=== PATIENT | female | born 1935 | race Caucasian/White ===

== ENCOUNTER 2016-10-02 20:59 | Emergency (ER) | payer OTHER ==
[2016-10-02 21:42] VITALS: BP 134/74; PULSE 70; RESP 16; TEMP 97; O2SAT 95
[2016-10-02 21:50] LABS: COLOR YELLOW; LEUKOCYTE ESTERASE,URINE 1+ (NEGATIVE); NITRITE,URINE NEGATIVE (NEGATIVE); PH,URINE 6.5 (5.0-7.5)
[2016-10-02] MEDS ORDERED: NITROFURANTOIN 100MG PREPACK#2 BTL TAKEHOME ONE (21:58)
[2016-10-02 22:00] LABS: WBC,URINE 15-25 /hpf (0-3)
[2016-10-02] MEDS ORDERED: PHENAZOPYRIDINE HCL 200 MG TAB PO ONE (22:00)
[2016-10-02 22:01] LABS: BACTERIA 2+ /hpf (NONE SEEN); RBC,URINE NONE SEEN /hpf (0-3)
--- NOTE | 2016-10-02 22:03 | EDPHY ---
H & P Stated Complaint: urinary frequency that started today Time Seen by Provider: 10/02/16 21:44 HPI/ROS: Chief Complaint: Urinary frequency, confusion HPI: 81-year-old woman with a history of dementia presenting with 2 days of increasing urinary frequency and urgency. Daughter has noted some increasing confusion today as well. She is prone to frequent UTIs and has similar symptoms. Denies any pain. No nausea or vomiting. No fevers or chills. ROS: 10 point Review of Systems is negative except as noted in the HPI. PMH: Hyperlipidemia, dementia Social History: No smoking, no alcohol, no recreational drug use, lives alone Family History: non-contributory Physical Exam: Gen: Awake, Alert, No Distress, mildly confused HEENT: Nose: no rhinorrhea Eyes: PERRLA, EOMI Mouth: Moist mucosa Neck: Supple, no JVD Chest: nontender, lungs clear to auscultation Heart: S1, S2 normal, no murmur Abd: Soft, non-tender, no guarding Back: no CVA tenderness, no midline tenderness Ext: no edema, non-tender Skin: no rash Neuro: CN II-XII intact, Sensation grossly intact, Strength 5/5 in bilateral upper and lower extremities - Medical/Surgical History Hx Asthma: No Hx Chronic Respiratory Disease: No Hx Diabetes: No Hx Cardiac Disease: No Hx Renal Disease: No Hx Cirrhosis: No Hx Alcoholism: No Hx HIV/AIDS: No Hx Splenectomy or Spleen Trauma: No Other PMH: dementia, HTN - Social History Smoking Status: Never smoked Constitutional: Initial Vital Signs Temperature (C) 36.1 C 10/02/16 21:39 Heart Rate 70 10/02/16 21:39 Respiratory Rate 16 10/02/16 21:39 Blood Pressure 134/74 H 10/02/16 21:39 O2 Sat (%) 95 10/02/16 21:39 O2 Delivery Mode Room Air Allergies/Adverse Reactions: No Known Allergies Allergy (Verified 10/02/16 21:37) Home Medications: Medication Instructions Recorded Questran 12/23/14 Simvastatin 12/23/14 Lopdipine 10/02/16 MIRTAZAPINE [Remeron 7.5 mg] 10/02/16 Nitrofurantoin Monohyd/M-Cryst 100 mg PO BID #10 capsule 10/02/16 [Macrobid 100 mg Capsule] Phenazopyridine HCl [Pyridium] 200 mg PO TID #6 tab 10/02/16 Medical Decision Making ED Course/Re-evaluation: 81-year-old with urinary tract infection. Will start her on some Pyridium as well as Macrobid. She will be staying with her daughter until her her mental status clears. Follow up with primary care physician in next 2-3 days, return for worsening. - Data Points Laboratory Results: 10/02/16 21:45 Urine Color YELLOW Urine Appearance CLEAR Urine pH 6.5 (5.0-7.5) Ur Specific [place] <= 1.005 (1.002-1.030) Urine Protein NEGATIVE (NEGATIVE) Urine Ketones NEGATIVE (NEGATIVE) Urine Blood TRACE H (NEGATIVE) Urine Nitrate NEGATIVE (NEGATIVE) Urine Bilirubin NEGATIVE (NEGATIVE) Urine Urobilinogen 0.2 EU EU (0.2-1.0) Ur Leukocyte Esterase 1+ H (NEGATIVE) Urine RBC Pending Urine WBC Pending Ur Epithelial Cells Pending Urine Glucose NEGATIVE (NEGATIVE) Departure - Departure Disposition: Home, Routine, Self-Care Clinical Impression: Urinary tract infection Condition: Good Instructions: Urinary Tract Infection in Women (ED) Additional Instructions: Follow up with primary care physician in 2-3 days for re-evaluation. Return to the emergency depart for increasing confusion, fevers, chills, fainting, nausea, vomiting, or any other concerns. Referrals: Nikki Stoddard MD [Medical Doctor] - As per Instructions Prescriptions: Nitrofurantoin Monohyd/M-Cryst [Macrobid 100 mg Capsule] 100 mg PO BID #10 capsule Phenazopyridine HCl [Pyridium] 200 mg PO TID #6 tab
[2016-10-02] MEDS ORDERED: ONDANSETRON 4MG PREPACK#2 BTL TAKEHOME ONE (22:07)
[2016-10-02] MEDS ORDERED: ONDANSETRON DISINTEGRATING 4 MG TAB ONE (22:08)
[2016-10-02] MEDS ORDERED: ONDANSETRON DISINTEGRATING 4 MG TAB PO ONE (22:22)
== END 2016-10-02 22:31 | disposition home or self-care (01) ==
LOC: CED 20:59
DX: N39.0 Urinary tract infection, site not specified (principal); I10 Essential (primary) hypertension
CPT/HCPCS: 81003-PO; 81015-PO

== ENCOUNTER 2017-09-23 22:21 | Observation (INO) | payer OTHER ==
[2017-09-23] MEDS ORDERED: NS 500 ML IV ONE (22:27)
[2017-09-23] MEDS ORDERED: ONDANSETRON 4 MG/2 ML VIAL IVP ONE (22:32)
--- NOTE | 2017-09-23 22:32 | EDPHY ---
H & P Smoking Status: Never smoked Time Seen by Provider: 09/23/17 22:26 HPI/ROS: CHIEF COMPLAINT: Shortness of breath HISTORY OF PRESENT ILLNESS: Patient brought in by daughter for shortness of breath. Patient lives alone, has history of dementia, and called her daughter about 30 min prior to arrival sane"I can not breathe". Last time her daughter talked her was yesterday and she had no complaints. She heard nothing today about other illnesses. Patient repetitively says "I can't breathe", also states "I am cold". Patient shaking on arrival with increased respiratory rate. On further investigation patient denies pain anywhere. She denies pain with breathing. She has had no cough. No report of nausea, vomiting, diarrhea. Does have history of UTIs with the last 1 several months ago. But currently denying dysuria. On further discussion with daughter patient with fairly significant dementia which has been getting much worse. Likely will need assisted living soon. When asked if patient gets anxiety attacks from her dementia daughter denies but states that she sometimes will complain of dizziness. No other recent illnesses. No recent travel. No recent surgeries. REVIEW OF SYSTEMS: Constitutional: No fever, no chills. Eyes: No discharge. ENT: No sore throat. Cardiovascular: No chest pain, no palpitations. Respiratory: Per HPI Gastrointestinal: No abdominal pain, vomiting in the ED. Genitourinary: No dysuria. Musculoskeletal: No back pain. Skin: No rashes. Neurological: No headache. General Appearance: Alert, moderate distress, shaking. Eyes: Pupils equal and round no pallor or injection. ENT, Mouth: Mucous membranes moist. Respiratory: There are no retractions, lungs are clear to auscultation. Cardiovascular: Regular rate and rhythm. Gastrointestinal: Abdomen is soft and nontender, no masses, bowel sounds normal. Neurological: Alert, dementia, no focal neurologic deficits. Skin: Warm and dry, no rashes. Musculoskeletal: Neck is supple nontender. Extremities are symmetrical, full range of motion, no edema. Psychiatric: Patient is cooperative, following commands, there is no agitation. Medical/surgical history: Dementia, hypothyroid, high cholesterol Social history: Lives alone, nonsmoker. (Maia Wilkerson) Constitutional: Initial Vital Signs Temperature (C) 36.7 C 09/23/17 22:28 Heart Rate 99 09/23/17 22:28 Respiratory Rate 20 09/23/17 22:28 Blood Pressure 153/96 H 09/23/17 22:28 O2 Sat (%) 90 L 09/23/17 22:28 O2 Delivery Mode Room Air O2 (L/minute) 2 Allergies/Adverse Reactions: No Known Allergies Allergy (Verified 10/02/16 21:37) Home Medications: Medication Instructions Recorded Questran 12/23/14 Simvastatin 12/23/14 Lopdipine 10/02/16 MIRTAZAPINE [Remeron 7.5 mg] 10/02/16 Thyroid [[place] Thyroid 60 MG (*)] 0 mg PO DAILY10 09/23/17 Medical Decision Making - Diagnostics Imaging Results: Imaging Impressions Chest X-Ray 09/23/17 22:27 Impression: 1. Atherosclerotic tortuous aorta. 2. No evidence of definite pneumonia or pulmonary edema. 3. Consider chest 2 views when the patient's medical condition permits. ED Course/Re-evaluation: 10:37 p.m. patient vomiting in the emergency department. Zofran ordered. 10:50 p.m. reviewed patient presentation, patient history, vital signs and physical findings with Dr. Pham. Likely admission. (Maia Wilkerson) 2300; patient is signed over to me at 11:00 p.m. Shift change. Patient was pending a urinalysis. The urinalysis has resulted and shows nitrite positive UTI. I have ordered a urine culture. The patient has been given 1 g Rocephin. I did go and see and evaluate her she is pleasant, and has no complaints. Her daughter is at bedside who states her neurological exam is at her baseline. Patient denies any coughing or significant abdominal pain or back pain. Here in emergency room she appears well nontoxic no acute distress. She is afebrile. Vital signs are stable. She is not hypotensive. She did have 1 episode of vomiting however currently denies any nausea chest pain or shortness of breath at this time. EKG interpretation by me on record in [employer] system. Impression time of EKG 2044, this is sinus tach 103 Q-waves noted inferior leads to 3 AVF, no ST elevation, Q-waves noted V1 V2 V3. No significant ST depression. LVH present. 2301: Long discussion with the patient as well as daughter at bedside about keeping her overnight for observation and UTI. 2305: Urine cultures been sent. 1 g IV Rocephin. It is noted she does have a positive D-dimer however I think pulmonary embolism is unlikely given that she does not have any chest pain does not have any significant shortness of breath. D-dimer is most likely positive in 82-year-old with nitrite positive UTI. Will admit to the hospital for nitrite UTI, dehydration. Chest x-ray reviewed. No evidence of infiltrate. 2324: Had a long discussion with the patient as well as the daughter at bedside discussed the results of the D-dimer. Additionally given that the D- dimer is positive and she had a room air saturation of 87% upon arrival and is requiring supplemental oxygen 2 L nasal cannula discussed further imaging for PE. I also discussed this with the hospitalist service they requested that we proceed with CT angiogram if the family is okay with this. Spoke with the daughter as well as the patient they are fine with proceeding with CT angiogram. Rule out PE. The D-dimer is positive most likely due to UTI. However patient's main complaint when she caught her daughter with shortness of breath. CT angiogram of the chest shows no evidence of pulmonary embolism. Emphysema present. Calcified aorta. Called to me by Dr. Frederick. Updated patient and family about CT results. Will continue treatment for UTI. Excepted overt [facility] by Dr. East. ([facility]) - Data Points Laboratory Results: Laboratory Results 09/23/17 22:35 09/23/17 22:35 09/23/17 09/23/17 09/23/17 22:50 22:35 22:35 WBC RBC Hgb Hct MCV MCH MCHC RDW Plt Count MPV Neut % (Auto) Lymph % (Auto) [place] % (Auto) Eos % (Auto) Baso % (Auto) Nucleat RBC Rel Count Absolute Neuts (auto) Absolute Lymphs (auto) Absolute Monos (auto) Absolute Eos (auto) Absolute Basos (auto) Absolute Nucleated RBC Immature Gran % Immature Gran # D-Dimer Sodium 139 mEq/L mEq/L (135-145) Potassium 3.2 mEq/L L mEq/L (3.3-5.0) Chloride 102 mEq/L mEq/L (97-110) Carbon Dioxide 22 mEq/l mEq/l (22-31) Anion Gap 15 mEq/L mEq/L (8-16) BUN 8 mg/dL mg/dL (7-23) Creatinine 0.6 mg/dL mg/dL (0.6-1.0) Estimated GFR > 60 Glucose 127 mg/dL H mg/dL (70-100) Calcium 9.9 mg/dL mg/dL (8.5-10.4) Troponin I Cancelled < 0.012 ng/mL ng/mL (0.000-0.034) TSH 3.660 uIU/mL uIU/mL (0.465-4.680) Urine Color YELLOW Urine Appearance HAZY Urine pH 6.0 (5.0-7.5) Ur Specific [place] 1.015 (1.002-1.030) Urine Protein NEGATIVE (NEGATIVE) Urine Ketones TRACE H (NEGATIVE) Urine Blood 2+ H (NEGATIVE) Urine Nitrate POSITIVE H (NEGATIVE) Urine Bilirubin NEGATIVE (NEGATIVE) Urine Urobilinogen 0.2 EU EU (0.2-1.0) Ur Leukocyte Esterase 3+ H (NEGATIVE) Urine RBC 25-50 /hpf H /hpf (0-3) Urine WBC 50-182 /hpf H /hpf (0-3) Ur Epithelial Cells NONE SEEN /lpf /lpf (NONE-1+) Urine Bacteria 3+ /hpf H /hpf (NONE SEEN) Urine Mucus 2+ /lpf H /lpf (NONE-1+) Urine Glucose NEGATIVE (NEGATIVE) 09/23/17 09/23/17 22:35 22:35 WBC 7.92 10^3/uL 10^3/uL (3.80-9.50) RBC 4.56 10^6/uL 10^6/uL (4.18-5.33) Hgb 13.8 g/dL g/dL (12.6-16.3) Hct 40.7 % % (38.0-47.0) MCV 89.3 fL fL (81.5-99.8) MCH 30.3 pg pg (27.9-34.1) MCHC 33.9 g/dL g/dL (32.4-36.7) RDW 12.9 % % (11.5-15.2) Plt Count 217 10^3/uL 10^3/uL (150-400) MPV 8.6 fL L fL (8.7-11.7) Neut % (Auto) 90.5 % H % (39.3-74.2) Lymph % (Auto) 8.2 % L % (15.0-45.0) [place] % (Auto) 0.4 % L % (4.5-13.0) Eos % (Auto) 0.3 % L % (0.6-7.6) Baso % (Auto) 0.3 % % (0.3-1.7) Nucleat RBC Rel Count 0.0 % % (0.0-0.2) Absolute Neuts (auto) 7.18 10^3/uL H 10^3/uL (1.70-6.50) Absolute Lymphs (auto) 0.65 10^3/uL L 10^3/uL (1.00-3.00) Absolute Monos (auto) 0.03 10^3/uL L 10^3/uL (0.30-0.80) Absolute Eos (auto) 0.02 10^3/uL L 10^3/uL (0.03-0.40) Absolute Basos (auto) 0.02 10^3/uL 10^3/uL (0.02-0.10) Absolute Nucleated RBC 0.00 10^3/uL 10^3/uL (0-0.01) Immature Gran % 0.3 % % (0.0-1.1) Immature Gran # 0.02 10^3/uL 10^3/uL (0.00-0.10) D-Dimer 2.10 ug/mLFEU H ug/mLFEU (0.00-0.50) Sodium Potassium Chloride Carbon Dioxide Anion Gap BUN Creatinine Estimated GFR Glucose Calcium Troponin I TSH Urine Color Urine Appearance Urine pH Ur Specific [place] Urine Protein Urine Ketones Urine Blood Urine Nitrate Urine Bilirubin Urine Urobilinogen Ur Leukocyte Esterase Urine RBC Urine WBC Ur Epithelial Cells Urine Bacteria Urine Mucus Urine Glucose Medications Given: Discontinued Medications Sodium Chloride (Ns) 500 mls @ 1,000 mls/hr IV EDNOW ONE PRN Reason: Protocol Stop: 09/23/17 22:56 Last Admin: 09/23/17 22:55 Dose: 500 mls Ceftriaxone Sodium/Dextrose (Rocephin 1 Gm (Premix)) 50 mls @ 100 mls/hr IV EDNOW ONE PRN Reason: Protocol Stop: 09/23/17 23:28 Last Admin: 09/23/17 23:06 Dose: 50 mls Ondansetron HCl (Zofran) 4 mg IVP EDNOW ONE Stop: 09/23/17 22:33 Last Admin: 09/23/17 22:36 Dose: 4 mg Departure - Departure Disposition: [facility] Clinical Impression: Dehydration UTI (urinary tract infection) Qualifiers: Urinary tract infection type: acute cystitis Hematuria presence: with hematuria Qualified Code(s): N30.01 - Acute cystitis with hematuria Dementia Qualifiers: Dementia type: unspecified type Dementia behavioral disturbance: without behavioral disturbance Qualified Code(s): F03.90 - Unspecified dementia without behavioral disturbance Condition: Fair
[2017-09-23] MEDS ORDERED: ONDANSETRON 4 MG/2 ML VIAL ONE (22:35)
--- NOTE | 2017-09-23 22:46 | CPEKG ---
Heart Rate: 103 RR Interval: 583 P-R Interval: 156 QRSD Interval: 90 QT Interval: 324 QTC Interval: 424 P [place]: 38 QRS [place]: -51 T Wave [place]: 155 EKG Severity - ABNORMAL ECG - EKG Impression: SINUS TACHYCARDIA EKG Impression: PROBABLE LVH WITH SECONDARY REPOL ABNRM EKG Impression: PROBABLE INFERIOR INFARCT, AGE INDETERMINATE EKG Impression: Poor R wave progression Electronically Signed By: Dinesh Barboza 25-Sep-2017 08:50:04
[2017-09-23 22:49] LABS: PLATELET COUNT 217 10^3/uL (150-400)
[2017-09-23] MEDS ORDERED: IOPAMIDOL (ISOVUE 370) 100 ML BTL IV ONE (23:19)
[2017-09-24] MEDS ORDERED: ACETAMINOPHEN 325 MG TAB PO PRN (01:50)
[2017-09-24] MEDS ORDERED: ONDANSETRON 4 MG/2 ML VIAL IVP PRN (01:50)
[2017-09-24] MEDS ORDERED: NS 1,000 ML IV SCH (02:00)
[2017-09-24] MEDS ORDERED: PROTOCOL POTASSIUM 1 DOSE MISC PRN (03:10)
[2017-09-24] MEDS ORDERED: MIRTAZAPINE 15 MG TAB PO ONE (03:24)
--- NOTE | 2017-09-24 05:46 | GHP ---
[f rep st] HISTORY AND PHYSICAL DATE OF ADMISSION: 09/23/2017 SOURCE: Patient with advanced dementia. She is not able to supplement any history as she has quite severe short-term memory deficits. Her daughter had left for the evening shortly after patient arriv ed from [facility]. EMR was reviewed, and case was discussed with ED provider. CHIEF COMPLAINT: Tremor and shortness of breath. HISTORY OF PRESENT ILLNESS: This is a pleasant elderly lady with history of Alzheimer dementia, who presents to the emergency department at [facility] with complaints of shortness of breath to her daughter. Patient resides in an independent living apartment. She called her daughter approximately 30 minutes before arriving to the ER, complaining that she could not breathe. Patient without any complaints o f anything on day previously when she talked to her daughter on the phone. Patient also complained t hat she felt cold at the time of her symptoms. Patient arrived to [facility] with some shaking and increase d respiratory rate. She was noted to be hypoxic down into the 70s. Patient without any cough. No f bridger or chills are noted. No known nausea, vomiting, or diarrhea episodes. Patient with a history of recurrent UTIs, but she denies any symptoms and states she feels fine. REVIEW OF SYSTEMS: Patient denies any symptoms at this time. No family available for further review and so limited. ALLERGIES: No known drug allergies. HOME MEDICATIONS: As per EMR, [place] Thyroid 60 mg p.o. daily, simvastatin, Questran, Remeron 7.5, l odipine (dose unknown). PAST MEDICAL HISTORY: Significant for dementia. PAST SURGICAL HISTORY: Patient denies but unable to verify. FAMILY HISTORY: Unable to obtain secondary to patient's dementia. SOCIAL HISTORY: Patient resides in independent living apartment. No known drug, tobacco, or alcohol use. CODE STATUS: Unable to verify as daughter has left for the evening. PHYSICAL EXAMINATION: VITALS: Upon arrival to the emergency department, blood pressure 153/96, hear t rate is 99, respiratory rate 20, O2 sat 90% on room air, temperature is 36.7. Patient's O2 sats do improve to mid 90% with 2 L of supplemental oxygen, but she does desat to mid 70s per report from e ER provider when she is placed on room air. HEAD: Normocephalic, atraumatic. EYES: Extraocular muscles are grossly intact. Pupils equal, round, react to light bilaterally and symmetric. No scler al icterus or conjunctival injection. ENT: Mucous membranes appear slightly tacky. No nasal discha rge. No oropharyngeal erythema. NECK: Supple. Trachea midline. CV: Regular rate and rhythm. Oscar guzman does have a 3/6 systolic murmur left sternal border. RESPIRATORY: Unlabored breathing. Lungs are quite diminished bibasilarly. No wheezes, rales, or rhonchi appreciated. ABDOMEN: Positive yoan wel sounds. Soft, nontender to palpation. No rebound, guarding, or masses appreciated. : No sup rapubic tenderness to palpation. No Sapp catheter in place. EXTREMITIES: Patient's strength 4/5 t o 5/5 in upper and lower extremities. Moves all extremities. Sits up independently. NEURO: Grossl y nonfocal. No facial drooping. Moves all extremities as noted above. PSYCH: Patient's short-term memory is diminished. She is not agitated, but she is a little restless, but she is resting comfort ably in the bed, trying to manipulate the remote control for the TV and states she cannot hear despit e it being on max volume. Patient is aware she is in the hospital and does not know location or why she is in the hospital. LABORATORY STUDIES: 1. WBC 7.92, H and H 13.8 and 40.7, MCV 89.3, platelet count is 217, no bands. 2. Sodium is 139, potassium 3.2, chloride 102, CO2 is 22, anion gap 15, BUN is 8, creatinine 0.6, GF R greater than 60, glucose 127, calcium 7.9. Troponin is negative. TSH is 3.660. 3. D-dimer is 2.10. 4. UA: Specific gravity of 1.015, pH 6.0, negative protein, ketones trace, blood 2+, nitrites posit radha, bilirubin negative, leukocyte esterase 3+, RBCs 25-50, WBCs 50-182, bacteria 3+, mucus 2+, gluco se negative. 5. EKG, reviewed myself, showing sinus tachycardia at 100s, probable LVH with early repolar changes, inferior infarct, Q waves in leads III, aVF. Anterior Q waves possibly secondary to LVH. QTc 424. 6. Chest x-ray image report reviewed, showing atherosclerotic tortuous aorta, negative for pneumonia or pulmonary edema. 7. CTA of the chest with contrast: Negative for PE. Severe emphysema is noted. Atherosclerotic ao rta without aneurysm. Coronary atherosclerosis present. Linear scarring right lower lobe without de finite pneumonia and severe vertebral plana, old fracture T12 vertebral body probably osteoporotic. ASSESSMENT AND PLAN: A pleasant 82-year-old female with history of advanced dementia, who presents t o the emergency department with complaint of shortness of breath. 1. Hypoxia and acute hypoxic respiratory failure. Patient without any previous requirement for home oxygen. CT scan was negative for any evidence of pulmonary embolism. It was, however, notable for pretty significant emphysema. It is unclear at this time if patient will tolerate wearing oxygen at home or remember to have it placed. Here on the medical floor, patient does remove it intermittently and has slightly increased agitation. 2. Urinary tract infection. Patient with history of recurrent. She is not currently symptomatic, b ut daughter does report history of some potential rigors. She has received 1 dose of Rocephin which we will plan to continue pending urine studies. 3. Dementia, severe. Supportive care. 4. Hypokalemia. Replacement p.r.n. 5. Hyperglycemia. This is a nonfasting lab. We will plan to monitor without any additional interve ntions at this time. We will allow for hyperglycemia in this pleasant elderly lady. 6. Hyperlipidemia. Resume her statin when medication reconciliation available. 7. Hypothyroidism. Resume her [place] Thyroid when medication reconciliation available, also. 8. The patient is on lodipine for unclear diagnosis. Will further discuss with the patient's daught er when she returns. 9. Fluid, electrolytes, nutrition. Patient will continue to receive intravenous fluids, and electro lytes will be monitored with. Diet regular. No known issues with dysphagia. 10. Code status is unable to ascertain. She will be left as full at this time until we can further discuss with the daughter who has gone home for the evening. 11. Disposition. Patient has been admitted to observation status on the medical floor at this time pending titration off oxygen, stability of patient's respiratory status, electrolyte replacement, and urinary tract infection evaluation and treatment. /[id number]/MODL
[2017-09-24] MEDS ORDERED: ENOXAPARIN 30 MG/0.3 ML SYR SC SCH (09:00)
[2017-09-24] MEDS ORDERED: POTASSIUM CL 10 MEQ TAB PO ONE (10:14)
--- NOTE | 2017-09-24 11:16 | ASMTCASEMG ---
Living Arrangements What is your living Answers: With Child(yenny) arrangement? Who do you live with? Type Of Residence What kind of residence do Answers: House you live in? Discharge Plan Comments Coordination Status Comments Notes: Pt is a 82 y/o female admitted for a UTI, dehydration, advance dementia and hypoxia. Pt lives w/ her daughter. Pt will most likely d/c independent when medically stable. No therapies ordered at this time. CM available for changes. Plan: Independent Date Signed: 09/24/2017 11:15 AM Electronically Signed By:MARIA ESTHER Calvillo
[2017-09-24 12:14] VITALS: BP 103/50
--- NOTE | 2017-09-24 12:53 | GDS ---
[f rep st] DISCHARGE SUMMARY DIAGNOSES: 1. Urinary tract infection. 2. Acute on chronic encephalopathy with underlying dementia. 3. Hypoxia, borderline, suspect chronic. 4. Mild hypokalemia. 5. Hypothyroid. 6. Hyperlipidemia. HOSPITAL COURSE: 82-year-old female, presented to the ED with complaints of shortness of breath and rigors. She was found to have urinary tract infection. She is much improved after having received R ocephin here. I noted previous urinary tract infection with Staph lugdunensis. Current UA is positi ve for nitrites. I will place her on cefdinir, given its similar spectrum of activity to Rocephin. Daughter specifically asked not to have a 3 times a day medication as her mother refused taking the n oon antibiotics previously. Mother does have significant dementia. She is currently living independently. I have discussed with daughter, as well as the patient herself, that she may not be able to continue living independently. For now, will discharge her to stay at her daughter's house tonight. Her daughter will assess her to make sure that she feels that she is at her baseline and safe to return to her independent living for the time being. Plans are underway for assisted living, although the daughter is not looking to do this in the next few months. I suspect that she will need a higher level of care relatively soon. I do think that she is safe to return to her daughter's house tonight and likely independent soon. /[id number]/MODL
[2017-09-24] MEDS ORDERED: MIRTAZAPINE 15 MG TAB PO SCH (21:00)
== END 2017-09-24 13:09 | disposition home or self-care (01) ==
LOC: CED 22:21 → CEDHOLD 23:15 → F3E 09-24 01:19
PROVIDERS: ADMIT Family Medicine; ATTEND Family Medicine
DX: N39.0 Urinary tract infection, site not specified (principal); G93.40 Encephalopathy, unspecified; F03.90 Unspecified dementia, unspecified severity, without behavioral disturbance, psychotic disturbance, mood disturbance, and anxiety; R09.02 Hypoxemia; E87.6 Hypokalemia; E03.9 Hypothyroidism, unspecified; E78.5 Hyperlipidemia, unspecified; I70.0 Atherosclerosis of aorta
CPT/HCPCS: 71045; 71275; 93005; G0378; J0696; J1650; J2405; Q9967; 80048-PO; 81015-PO; 84443-PO; 84484-PO; 96365

== ENCOUNTER 2017-10-10 12:05 | Emergency (ER) | payer OTHER ==
--- NOTE | 2017-10-10 13:13 | EDPHY ---
H & P Smoking Status: Never smoked Time Seen by Provider: 10/10/17 12:44 HPI/ROS: CHIEF COMPLAINT: Urinary tract infection HISTORY OF PRESENT ILLNESS: 82-year-old female presents to the emergency department with her daughter complaining of urinary frequency. The patient was admitted to the hospital on 09/23/2017 with dehydration and urinary tract infection. At that time she had a urine culture which revealed E coli and was pansensitive. The patient took cefdinir as prescribed. Her symptoms improved and then her daughter states that she developed recurring urinary frequency today. No fevers or chills. The patient denies back pain. No vomiting or abdominal pain. Patient denies dysuria. The daughter states that the patient has dementia may not be able to explain symptoms well. REVIEW OF SYSTEMS: Constitutional: No fever, no chills. Eyes: No double or blurry vision. ENT: No sore throat. Respiratory: No cough, no shortness of breath. Cardiac: No chest pain. Gastrointestinal: No abdominal pain, vomiting or diarrhea. Genitourinary: Urinary frequency. No dysuria. Musculoskeletal: No neck or back pain. Skin: No rashes. Neurological: No headache. (Chasity Mcmanus) Past Medical/Surgical History: Urinary tract infection diagnosed 09/23/2017 E coli pansensitive. dementia, hypertension, emphysema (Chasity Mcmanus) Social History: and lives independently (Chasity Mcmanus) Physical Exam: General Appearance: Alert, no distress. Patient is extremely hard of hearing. Daughter at bedside. Eyes: Pupils equal and round. Extraocular motions are all intact. ENT: Mouth: Mucous membranes moist. Respiratory: No wheezing, rhonchi, or rales, lungs are clear to auscultation. Cardiovascular: Regular rate and rhythm. Gastrointestinal: Abdomen is soft and nontender, no masses, no rebound or guarding, bowel sounds normal. No CVA tenderness bilaterally. Neurological: cranial nerves II through XII grossly intact Skin: Warm and dry, no rashes. Musculoskeletal: Nontender to palpate along the cervical, thoracic or lumbar spine. Neck is supple. Extremities: Full range of motion and no peripheral edema. Psychiatric: no agitation. (Chasity Mcmanus) Constitutional: Initial Vital Signs Temperature (C) 36.5 C 10/10/17 12:13 Heart Rate 84 10/10/17 12:13 Respiratory Rate 16 10/10/17 12:13 Blood Pressure 163/90 H 10/10/17 12:13 O2 Sat (%) 92 10/10/17 12:13 O2 Delivery Mode Room Air Allergies/Adverse Reactions: No Known Allergies Allergy (Verified 10/10/17 12:12) Home Medications: Medication Instructions Recorded QUEtiapine FUMARATE [Seroquel 25 25 mg PO HS 12/23/14 mg (*)] Simvastatin [Zocor] 40 mg PO HS 12/23/14 amLODIPine BESYLATE [Norvasc 5 mg 5 mg PO DAILY 10/02/16 (*)] Calcium Carbonate [Tums 500MG (*)] 500 mg PO DAILY PRN 09/24/17 Donepezil HCl [Aricept 5 MG (*)] 5 mg PO HS 09/24/17 Ibuprofen [Motrin (*)] 200 mg PO DAILY PRN 09/24/17 Levothyroxine [Synthroid 50 mcg 50 mcg PO DAILY06 09/24/17 (*)] Mirtazapine [Remeron] 15 mg PO HS 09/24/17 Sulfamethox/Tmp 800/160 mg 1 tab PO BID #10 tab 10/10/17 [Bactrim DS] Medical Decision Making ED Course/Re-evaluation: 82-year-old female presents to the emergency department with symptoms of urinary tract infection. Urinalysis reveals large amount of red blood cells and white blood cells. Urine cultures pending. The case was discussed with Dr. Viet Carvalho, secondary supervising physician, who did not directly evaluate the patient but agrees with treatment and plan. The daughter is requesting antibiotic that is does twice daily. Since ciprofloxacin interferes with her daily medications, she will be treated with Bactrim DS twice daily for 5 days. Urine cultures pending. They will return if she develops fever, vomiting, back pain or any other concerns. Patient and daughter at bedside were comfortable with this plan. (Chasity Mcmanus) I did not see this patient while she was in the emergency department. However her care is discussed with the PA while the patient was in the department. I agree with treatment plan and management (Viet Carvalho) Differential Diagnosis: Including but not limited to urinary tract infection, pyelonephritis, urosepsis , medication noncompliance (Chasity Mcmanus) - Data Points Microbiology Results: MICROBIOLOGY 10/10/17 12:10 Urine,Clean Catch Urine Culture - Preliminary Gram Neg Casey [employer] Interactive Account Manager Departure - Departure Disposition: Home, Routine, Self-Care Clinical Impression: UTI (urinary tract infection) Qualifiers: Urinary tract infection type: urethritis Qualified Code(s): N34.2 - Other urethritis Condition: Good Instructions: Sulfamethoxazole/Trimethoprim (By mouth), Urinary Tract Infection in Women (ED) Additional Instructions: Call [phone] for the results of your urine culture in 48 hr. Bactrim DS 500 mg twice daily for 5 days. Return to the emergency department if he developed fever, vomiting, back pain, or if you feel worse in any way. Referrals: Nikki Stoddard MD [Primary Care Provider] - As per Instructions Prescriptions: Sulfamethox/Tmp 800/160 mg [Bactrim DS] 1 tab PO BID #10 tab
[2017-10-10 13:25] VITALS: BP 155/96
== END 2017-10-10 13:25 | disposition home or self-care (01) ==
DX: N34.2 Other urethritis (principal); B96.20 Unspecified Escherichia coli [E. coli] as the cause of diseases classified elsewhere; I10 Essential (primary) hypertension
CPT/HCPCS: 99000-PO

== ENCOUNTER 2018-02-27 12:11 | Emergency (ER) | payer OTHER, MEDICAID ==
--- NOTE | 2018-02-27 12:39 | EDPHY ---
General Time Seen by Provider: 02/27/18 12:31 Narrative: CHIEF COMPLAINT: Fall, shoulder pain HISTORY OF PRESENT ILLNESS: Patient presents by private vehicle with complaints of right shoulder pain status post fall. Her daughter is at bedside. Patient reports that she was walking her dog just prior to arrival when the dog pulled to the ground and she stepped awkwardly on the edge of the curb. This was reportedly unwitnessed. Patient states that she landed on her right shoulder. Her only complaint is right shoulder pain. At rest it is 0. When she attempts to move the arm it is severe. No numbness or tingling in the right arm or hand. No numbness or tingling anywhere else. She denies striking her head. No loss of consciousness. No headache. No nausea vomiting. No neck pain or stiffness. She has no other complaints anywhere else. She is right-hand dominant. No other associated complaints or modifying factors. REVIEW OF SYSTEMS: 10 systems were reviewed and negative with the exception of the elements mentioned in the history of present illness. PCP: Dr. Stoddard SPECIALISTS: Dr. Tres Torres, orthopedist PAST MEDICAL HISTORY: Dementia, hypertension, dyslipidemia, emphysema, hypothyroid ANTICOAGULATED: None. PAST SURGICAL HISTORY: No recent surgical history SOCIAL HISTORY: Nonsmoker. Lives [facility] FAMILY HISTORY: Noncontributory EXAMINATION: General Appearance: Alert, no distress Head: normocephalic, atraumatic. No Avila sign. No raccoon eyes. no depression or deformity. Eyes: Bilateral arcus senilis. EOM symmetric Pupils equal and round, no conjunctival pallor or injection ENT, Mouth: Mucous membranes moist. Airway patent Neck: Normal inspection, supple, non-tender Respiratory: Lungs are clear to auscultation Cardiovascular: Regular rate and rhythm. No murmur Gastrointestinal: Abdomen is soft and nontender Back: non-tender, no bony abnormalities Neurological: Alert to baseline. Strength is symmetric in all 4 limbs. Light sensory symmetric in the shoulders, hands, thighs and lower extremities. Skin: Warm and dry, no rash. Multiple skin spots. Extremities: Tenderness and swelling of the right shoulder. Unable to range the right shoulder due to pain. All compartments are soft the right upper extremity with no pain in the right elbow or right wrist. She can't fully straighten the right elbow without pain. Psychiatric: Mood and affect normal DIFFERENTIAL DIAGNOSES: Including but not limited to shoulder separation, shoulder dislocation, humerus fracture, shoulder sprain, clavicle fracture, rib fracture, contusion, hematoma , intracranial hemorrhage MDM: 12:30 p.m. Mechanical fall onto the right shoulder within the past 2 hr. Her only complaint is right shoulder pain. She has no complaints of pain anywhere else on her person. She is awake and alert to baseline. She has no focal neuro deficits. She does have baseline dementia, which her daughter at bedside confirms. Daughter at bedside is the power of deputy commonwealth's attorney and does not want us to order any CT imaging of the head or neck. I do feel this is reasonable at this time despite her age. I have ordered x-ray of the right shoulder and chest. She does not take any anticoagulants. She is in no acute distress. Neuro intact distally to the right shoulder pain 1:05 p.m. X-ray as read by me, without radiologist, reveals fracture of the humerus, proximal surgical neck. I have discussed with case management so they can provide surgical services assistant with disposition as she will need higher level of care. She is in no acute distress. Neuro intact distally. She will be placed in a sling. 1:30 p.m. Case discussed with Dr. Dominguez. He has reviewed the x-ray and agreed with outpatient management. He would like her in a sling and to see her early next week. 1:40 p.m. Case management, Nataliya MACHADO, as visited with the patient and the daughter. She will provide home health orders for PT, OT CT evaluation. She will make sure this is coordinated by her primary care physician. I discussed the case with the patient daughter and they are both comfortable this plan. They would like to take her home her independent living facility. We discussed risks, benefits alternatives the like to proceed. We discussed ED precautions for any worsening pain, numbness, tingling or weakness. We discuss ED precautions for headache, vomiting or visual disturbance. She will need to contact Orthopedics for outpatient follow-up early next week. She will be discharged home stable condition. SUPERVISION: This patient was independently evaluated without direct involvement of or examination by the attending physician. CONSULTATION: Case management - History Smoking Status: Never smoked - Objective Vital Signs: Initial Vital Signs Temperature (C) 97.5 F 02/27/18 12:25 Heart Rate 94 02/27/18 12:25 Respiratory Rate 17 02/27/18 12:25 Blood Pressure 138/96 H 02/27/18 12:25 O2 Sat (%) 92 02/27/18 12:25 O2 Delivery Mode Room Air Allergies/Adverse Reactions: No Known Allergies Allergy (Verified 02/27/18 12:24) Home Medications: Medication Instructions Recorded QUEtiapine FUMARATE [Seroquel 25 25 mg PO HS 12/23/14 mg (*)] Simvastatin [Zocor] 40 mg PO HS 12/23/14 amLODIPine BESYLATE [Norvasc 5 mg 5 mg PO DAILY 10/02/16 (*)] Calcium Carbonate [Tums 500MG (*)] 500 mg PO DAILY PRN 09/24/17 Donepezil HCl [Aricept 5 MG (*)] 5 mg PO HS 09/24/17 Ibuprofen [Motrin (*)] 200 mg PO DAILY PRN 09/24/17 Levothyroxine [Synthroid 50 mcg 50 mcg PO DAILY06 09/24/17 (*)] Mirtazapine [Remeron] 15 mg PO HS 09/24/17 ED Course Consultation (time): 13:[address]:: Kashif Dominguez Discussion: Sling to the right upper extremity outpatient follow-up next week Departure - Departure Disposition: Home, Routine, Self-Care Clinical Impression: Fracture of humerus, right, closed Qualifiers: Encounter type: initial encounter Humerus Location: proximal Fracture morphology: unspecified fracture morphology Qualified Code(s): S42.201A - Unspecified fracture of upper end of right humerus, initial encounter for closed fracture Fall from standing Qualifiers: Encounter type: initial encounter Qualified Code(s): W19.XXXA - Unspecified fall, initial encounter Condition: Good Instructions: Fall Prevention for Older Adults (ED), Fall Prevention (ED), Proximal Humerus Fracture (ED) Additional Instructions: 1. Sling to the right upper extremity for comfort. 2. Ice and elevate the shoulder as needed 3. You will need to follow up with Orthopedics early next week for definitive care of the right humerus fracture 4. Return here for any redness, swelling or pain to the extremities, chest pain or shortness of breath Referrals: Nikki Stoddard MD [Primary Care Provider] - As per Instructions Tres Torres MD [Medical Doctor] - As per Instructions Kashif Dominguez MD [Medical Doctor] - As per Instructions
[2018-02-27 14:07] VITALS: BP 121/82
--- NOTE | 2018-02-27 15:06 | ASMTCMCOM ---
CM Note CM Note Notes: Patient presents to the ER with her daughter Mora s/p fall/fractured humerus. Patient lives at [facility] living in [place] but Mora and her brother have been encouarging patient to get into [place]. Per Mora, patient will likely be going to [facility] in the near future and is transitioning into Medicaid at this time. Patient would like to return home and is open to HH services for PT/OT. We talked about Mora taking her (patient's) dog home with her so as to avoid any issues with walking with a leash, etc. Patient states she would prefer to go home if she is able. Mora believes home with HH is a good option to allow patient to stay in her familiar environment. I have contacted [facility] as well as patient's PCP Dr. Stoddard at [facility] regarding follow up orders for HH. Order for HH referral faxed to [facility] and they will contact Mora this afternoon to arrange initial visit. I spoke with Mora about HCBS and have provided her with Nikki Beltrán's ([facility]) contact information to assist further as patient's Medicaid benefits are available Date Signed: 02/27/2018 03:05 PM Electronically Signed By:Nataliya Mancuso RN
== END 2018-02-27 14:01 | disposition home or self-care (01) ==
DX: S42.211A Unspecified displaced fracture of surgical neck of right humerus, initial encounter for closed fracture (principal); W10.1XXA Fall (on)(from) sidewalk curb, initial encounter; Y93.K1 Activity, walking an animal; Y99.8 Other external cause status; F03.90 Unspecified dementia, unspecified severity, without behavioral disturbance, psychotic disturbance, mood disturbance, and anxiety
CPT/HCPCS: 71045; 73030; 99284; A4565

== ENCOUNTER 2018-05-29 16:56 | Emergency (ER) | payer OTHER, MEDICAID ==
--- NOTE | 2018-05-29 17:23 | EDPHY ---
H & P Stated Complaint: Pt. with rt hand ecchymosis and swelling, also possible ?UTI Time Seen by Provider: 05/29/18 17:09 HPI/ROS: HPI The patient presents with bruising to her right wrist and forearm which has been present for the last 2 days. She resides at assisted living and daughter believes that she had a fall about 2 days ago. However, due to her dementia, the patient cannot recall any details of the event although she says that she did not do it on purpose. Two mornings ago the patient's daughter received a call from the patient who seemed quite agitated, she is concerned that this is when the fall happened. She said her behavior and the way she sounded at the time was similar to when she had a urinary tract infection previously. The patient currently denies any abdominal pain or fever. She does not have any nausea or vomiting. She is here with her daughter who is her DPOA. Her daughter had difficulty getting her to come to the emergency department today. She says the patient is quite stubborn, though is generally acting herself and does not seem more confused than her baseline. REVIEW OF SYSTEMS 10 systems were reviewed and negative with the exception of the elements mentioned in the history of present illness. PMHx: Dementia, hypertension, hyperlipidemia Seen in the emergency department in February of 2018 for right humeral fracture which was treated with conservative measures. Admitted to the hospital in September of 2017 for urinary tract infection which improved with ceftriaxone. Soc Hx: Resides in assisted living, here with her daughter PHYSICAL General Appearance: Alert, no distress Eyes: Pupils equal and round no pallor or injection ENT, Mouth: Mucous membranes moist Respiratory: Breathing comfortably Gastrointestinal: Abdomen is soft and non-tender, no masses, bowel sounds normal , no flank tenderness Neurological: A&O, moves all extremities Skin: Warm and dry, no rashes Musculoskeletal: Right wrist is slightly edematous with diffuse ecchymoses throughout thenar eminence extending to mid forearm and circumferential within the wrist and forearm, there is full range of motion of her wrist, there is no anatomic snuffbox tenderness or pain with axial loading, there is sensation intact, 2+ radial pulses are present Extremities: symmetrical, full range of motion Psychiatric: The patient is not agitated though is anxious to leave the emergency department Source: Patient, Family Exam Limitations: Physical impairment - Personal History Current Tetanus Diphtheria and Acellular Pertussis (TDAP): Yes - Medical/Surgical History Hx Asthma: No Hx Chronic Respiratory Disease: Yes Hx Diabetes: No Hx Cardiac Disease: No Hx Renal Disease: No Hx Cirrhosis: No Hx Alcoholism: No Hx HIV/AIDS: No Hx Splenectomy or Spleen Trauma: No Other PMH: dementia, HTN, hyperlipidemia, emphysema, hypothyroidism. Surg-none - Social History Smoking Status: Never smoked Constitutional: Initial Vital Signs Temperature (C) 36.7 C 05/29/18 17:08 Heart Rate 80 05/29/18 17:08 Respiratory Rate 16 05/29/18 17:08 Blood Pressure 154/94 H 05/29/18 17:08 O2 Sat (%) 93 05/29/18 17:08 O2 Delivery Mode Room Air Allergies/Adverse Reactions: No Known Allergies Allergy (Verified 05/29/18 17:07) Home Medications: Medication Instructions Recorded QUEtiapine FUMARATE [Seroquel 25 25 mg PO HS 12/23/14 mg (*)] Simvastatin [Zocor] 40 mg PO HS 12/23/14 amLODIPine BESYLATE [Norvasc 5 mg 5 mg PO DAILY 10/02/16 (*)] Calcium Carbonate [Tums 500MG (*)] 500 mg PO DAILY PRN 09/24/17 Donepezil HCl [Aricept 5 MG (*)] 5 mg PO HS 09/24/17 Ibuprofen [Motrin (*)] 200 mg PO DAILY PRN 09/24/17 Levothyroxine [Synthroid 50 mcg 50 mcg PO DAILY06 09/24/17 (*)] Mirtazapine [Remeron] 15 mg PO HS 09/24/17 Medical Decision Making - Diagnostics Imaging Results: Imaging Impressions Wrist X-Ray 05/29/18 17:17 Impression: 1. Nondisplaced fracture radial styloid. 2. Osteopenia/osteoporosis suspected. If indicated, consider DEXA scan at some point for further characterization Imaging: I viewed and interpreted images myself Procedures: SPLINT Procedure: Splint placement. A ortho glass short arm splint was applied to the right wrist by the tech. After application of the splint I returned and re-examined the patient. The splint was adequately immobilizing the joint and distal to the splint the patient's circulation and sensation was intact. Differential Diagnosis: This is an 83-year-old female with dementia who resides at an assisted living facility who is here in the emergency department with her daughter who is her DPOA, who presents after a fall which occurred 2 days ago, the patient does not recall any details of the fall which is not surprising to her daughter. She has significant ecchymoses to her right wrist without any other external signs of trauma. She seemed agitated to her daughter about 2 days ago which raise suspicion for urinary tract infection. She seems to be more herself currently. She does not have any nausea, vomiting, fever, worsening confusion. In the emergency department, patient had UA performed which demonstrated small leukocyte esterase and blood. Because of this I do recommend treatment with antibiotics given her previous symptoms. I think oral antibiotics are sufficient given that her symptoms are mostly resolved at this point. She has a prescription for Bactrim already called into her local pharmacy and she has taken this before with good result. I will have her take this, her primary care doctor has also sent a urine culture. X-rays of her right wrist were performed which showed radial styloid fracture. Because of this the patient was placed in a short-arm splint. I will have her follow up with her primary treating orthopedist, Dr. Dominguez for further care. - Data Points Point of Care Test Results: Urine Dip Collection Date 05/29/18 Collection Time 17:10 Specific [place] (1.002-1.030) 1.010 PH (5.0-7.5) 7.0 Leukocytes (Negative) 1+ Nitrites (Negative) Negative Protein (Negative) Negative Glucose (Negative) Negative Ketones (Negative) Negative Urobilnogen (0.2-1.0 EU) 0.2 Bilirubin (Negative) Negative Blood (Negative) Trace Departure - Departure Disposition: Home, Routine, Self-Care Clinical Impression: Radial styloid fracture Qualifiers: Encounter type: initial encounter Fracture type: closed Fracture alignment: nondisplaced Laterality: right Qualified Code(s): S52.514A - Nondisplaced fracture of right radial styloid process, initial encounter for closed fracture UTI (urinary tract infection) Qualifiers: Urinary tract infection type: acute cystitis Hematuria presence: with hematuria Qualified Code(s): N30.01 - Acute cystitis with hematuria Condition: Good Instructions: Wrist Fracture in Adults (ED) Additional Instructions: Please keep the splint on until your seen by Dr. Dominguez or 1 of his colleagues. Please call for an appointment sometime tomorrow. You should be seen within 7- 10 days of the injury. You can use ice on the wrist for pain or take Tylenol 650 mg every 6 hr. Your urine test here showed that you probably have a mild UTI. Because of this I would like for you to take the Bactrim your prescribed by her primary care doctor. If you have any difficulties obtaining this prescription, please contact us. Please return to the emergency department if your worse in any way. Referrals: Nikki Stoddard MD [Primary Care Provider] - As per Instructions Kashif Dominguez MD [Medical Doctor] - As per Instructions
[2018-05-29 19:07] VITALS: BP 136/87
== END 2018-05-29 18:25 | disposition home or self-care (01) ==
LOC: CED 16:56
PROC: 2W3EX1Z Immobilization of Right Hand using Splint (ICD-10-PCS; principal; 2018-05-29)
DX: S52.514A Nondisplaced fracture of right radial styloid process, initial encounter for closed fracture (principal); N30.01 Acute cystitis with hematuria; F03.90 Unspecified dementia, unspecified severity, without behavioral disturbance, psychotic disturbance, mood disturbance, and anxiety; I10 Essential (primary) hypertension; E78.5 Hyperlipidemia, unspecified; W19.XXXA Unspecified fall, initial encounter; Y92.129 Unspecified place in nursing home as the place of occurrence of the external cause
CPT/HCPCS: 73110-PO; 99283-ER